=== PATIENT | male | born 1970 | race Caucasian/White ===

== ENCOUNTER 2016-10-24 09:03 | Emergency (ER) | payer BC ==
[~2016-10-24] VITALS: Ht 167.6 cm; Wt 82.0 kg
[2016-10-24 09:08] VITALS: Ht 167.6 cm; Wt 82.0 kg
[2016-10-24] MEDS ORDERED: ONDANSETRON (ODT) 4 MG TAB ODT STA (09:23)
[2016-10-24] MEDS ORDERED: FAMOTIDINE 20 MG TAB PO ONE (09:30)
--- NOTE | 2016-10-24 09:40 | ERD ---
ER Documentation Chief Complaint Date/Time DATE: 10/24/16 TIME: 09:38 Chief Complaint Complains of vomiting and diarrhea x 2 days HPI 46-year-old otherwise healthy comes emergency room with vomiting and diarrhea that started today after returning from [place]. Patient states that he had a week of heavy drinking and also had some seafood. He was with friends and does not report anyone else who got sick. Symptoms started early this morning after returning, includes epigastric pain associated with nonbloody nonbilious emesis and up to 3 episodes of diarrhea. He has not had any hematemesis or blood in stools. He denies fevers or chills. ROS All systems reviewed and are negative except as per history of present illness. Medications Home Meds Active Scripts Ranitidine Hcl* (Zantac*) 150 Mg Tablet, 150 MG PO BID Y for EPIGASTRIC PAIN, # 30 TAB Prov:BEBE DING PA-C 10/24/16 Ondansetron (Ondansetron Odt) 4 Mg Tab.rapdis, 4 MG PO Q6H Y for NAUSEA AND/OR VOMITING, #10 TAB Prov:BEBE DING PA-C 10/24/16 Allergies Allergies: Coded Allergies: No Known Allergy (Unverified , 10/24/16) PMhx/Soc Medical and Surgical Hx: pt denies Medical Hx, pt denies Surgical Hx Hx Alcohol Use: No Hx Substance Use: No Physical Exam Vitals Vital Signs Date Time Temp Pulse Resp B/P Pulse Ox O2 Delivery O2 Flow Rate FiO2 10/24/16 09:08 97.1 20 129/63 99 Physical Exam General: Well-developed, well-nourished. The patient appears in no acute distress. HEENT: Head is normocephalic, atraumatic. No scleral icterus. Lungs: Clear to auscultation. Normal air movement. Heart: Regular rate and rhythm. S1 and S2 are normal. No murmurs, gallops, or rubs. Abdomen: Soft, minimal tenderness in the epigastric region , nondistended. Bowel sounds are normoactive. Negative Del Valle sign, no McBurney's tenderness. Extremities: No clubbing or cyanosis. Normal pulses. Moving extremities x 4. No weakness. Neurologic: Alert and oriented 3. No focal deficits. Skin: Normal turgor. No rash or lesions. Result Diagram: 10/24/1635 10/24/1635 Results 24 hrs Laboratory Tests Test 10/24/16 09:31 10/24/16 09:35 Urine Color YELLOW Urine Clarity CLEAR Urine pH 5.0 Urine Specific [place] 1.012 Urine Ketones NEGATIVEmg/dL Urine Nitrite NEGATIVEmg/dL Urine Bilirubin NEGATIVEmg/dL Urine Urobilinogen NEGATIVEmg/dL Urine Leukocyte Esterase NEGATIVELeu/ul Urine Microscopic RBC 1/HPF Urine Microscopic WBC 0/HPF Urine Hemoglobin 1+mg/dL Urine Glucose NEGATIVEmg/dL Urine Total Protein NEGATIVEmg/dl White Blood Count 10.610^3/ul Red Blood Count 4.6010^6/ul Hemoglobin 14.8g/dl Hematocrit 42.2% Mean Corpuscular Volume 91.7fl Mean Corpuscular Hemoglobin 32.2pg Mean Corpuscular Hemoglobin Concent 35.1g/dl Red Cell Distribution Width 12.1% Platelet Count 43074^3/UL Mean Platelet Volume 10.0fl Neutrophils % 67.7% Lymphocytes % 20.7% Monocytes % 9.3% Eosinophils % 0.6% Basophils % 0.8% Nucleated Red Blood Cells % 0.0/100WBC Neutrophils # 7.210^3/ul Lymphocytes # 2.210^3/ul Monocytes # 1.010^3/ul Eosinophils # 0.110^3/ul Basophils # 0.110^3/ul Nucleated Red Blood Cells # 0.010^3/ul Sodium Level 136mmol/L Potassium Level 3.9mmol/L Chloride Level 97mmol/L Carbon Dioxide Level 23mmol/L Anion Gap 20 Blood Urea Nitrogen 5mg/dl Creatinine 0.78mg/dl Glucose Level 117mg/dl Calcium Level 10.0mg/dl Total Bilirubin 0.3mg/dl Direct Bilirubin 0.00mg/dl Indirect Bilirubin 0.3mg/dl Aspartate Amino Transf (AST/SGOT) 58IU/L Alanine Aminotransferase (ALT/SGPT) 71IU/L Alkaline Phosphatase 88IU/L Total Protein 8.0g/dl Albumin 4.9g/dl Globulin 3.10g/dl Albumin/Globulin Ratio 1.58 Lipase 73U/L Current Medications Medications (Trade) Dose Ordered Sig/Eve Route PRN Reason Start Time Stop Time Status Last Admin Dose Admin Ondansetron HCl (Zofran Odt) 4 mg ONCE STAT ODT 10/24/16 09:23 10/24/16 09:25 DC 10/24/16 09:32 Famotidine (Pepcid) 20 mg ONCE ONCE PO 10/24/16 09:30 10/24/16 09:31 DC 10/24/16 09:32 Procedures/[facility] ED course: Patient had blood and urine obtained. He was medicated with Pepcid 20 mg by mouth, Zofran 4 mg ODT. Medical decision making this is a 46-year-old male comes in with nausea, vomiting and diarrhea with epigastric abdominal pain. Likely gastritis secondary from drinking. Patient's differential diagnosis includes gastritis, gastroenteritis, food poisoning, pancreatitis and among others. Blood work shows a mildly elevated AST and ALT, no significant transaminitis, no evidence of pancreatitis. He was given Pepcid and Zofran, responded well and will be discharged home. Departure Diagnosis: Primary Impression: Nausea vomiting and diarrhea Condition: Good BEBE DING PA-C Oct 24, 2016 09:40
[2016-10-24 09:57] LABS: ADD SCAN DIFF NO
[2016-10-24 10:04] LABS: BASOPHIL # 0.1 10^3/ul (0.0-0.1); BASOPHILS % 0.8 % (0.0-2.0); EOSINOPHILS # 0.1 10^3/ul (0.0-0.5); EOSINOPHILS % 0.6 % (0.0-7.0); HEMATOCRIT 42.2 % (42.0-52.0); HEMOGLOBIN 14.8 g/dl (14.0-18.0); LYMPHOCYTES # 2.2 10^3/ul (0.8-2.9); LYMPHOCYTES % 20.7 % (15.0-51.0); MEAN CORPUSCULAR HEMOGLOBIN 32.2 pg (29.0-33.0); MEAN CORPUSCULAR HGB CONC 35.1 g/dl (32.0-37.0); MEAN CORPUSCULAR VOLUME 91.7 fl (82.0-101.0); MONOCYTES % 9.3 % (0.0-11.0); NEUTROPHIL # 7.2 10^3/ul (1.6-7.5); NEUTROPHILS % 67.7 % (39.0-77.0); PLATELET COUNT 238 10^3/UL (140-415); RED CELL DISTRIBUTION WIDTH 12.1 % (11.5-14.5); WHITE BLOOD COUNT 10.6 10^3/ul (4.8-10.8)
[2016-10-24 10:11] LABS: ADD UMIC YES; UR ASCORBIC ACID NEGATIVE (NEGATIVE); UR BILIRUBIN (Dip) NEGATIVE (NEGATIVE); UR BLOOD (Dip) 1+ mg/dL (NEGATIVE); UR CLARITY CLEAR (CLEAR); UR COLOR YELLOW (YELLOW); UR GLUCOSE (Dip) NEGATIVE (NEGATIVE); UR KETONES (Dip) NEGATIVE (NEGATIVE); UR LEUKOCYTE ESTERASE (Dip) NEGATIVE Leu/ul (NEGATIVE); UR NITRITE (Dip) NEGATIVE (NEGATIVE); UR RBC 1 /HPF (0-5); UR SPECIFIC GRAVITY (Dip) 1.012 (1.003-1.030); UR TOTAL PROTEIN (Dip) NEGATIVE (NEGATIVE); UR UROBILINOGEN (Dip) NEGATIVE (NEGATIVE)
[2016-10-24 10:23] LABS: ALBUMIN 4.9 g/dl (3.3-4.9); ALBUMIN/GLOBULIN RATIO 1.58; BILIRUBIN,INDIRECT 0.3 mg/dl (0-1.1); BILIRUBIN,TOTAL 0.3 mg/dl (0.2-1.3); CREATININE 0.78 mg/dl (0.61-1.24); POTASSIUM 3.9 mmol/L (3.5-5.1)
[2016-10-24] MEDS ORDERED: RANI150T9 PO (10:39)
[2016-10-24] MEDS ORDERED: ONDA4TAB14 PO (10:39)
== END 2016-10-24 10:44 | disposition home or self-care (01) ==
LOC: FTE 09:03
DX: R11.2 Nausea with vomiting, unspecified (principal); R19.7 Diarrhea, unspecified
CPT/HCPCS: 36415; 80053; 81001; 83690; 85025; 99283